=== PATIENT | male | born 1985 | race Caucasian/White ===

== ENCOUNTER 2022-09-07 13:42 | Emergency (ER) | payer MEDICARE, OTHER ==
[~2022-09-07] VITALS: Ht 175.3 cm; Wt 72.7 kg
[2022-09-07] MEDS ORDERED: NALOXONE HCL 1MG/ML 2ML SYRINGE IV ONE (14:00)
[2022-09-07 14:14] LABS: Basophils # (auto) 0.1 10 ^3/uL (0-0.2); Basophils % (auto) 0.8 % (0.0-2.0); Eosinophils # (auto) 0.3 10 ^3/uL (0-0.8); Eosinophils % (auto) 2.3 % (0.0-7.0); Hematocrit 38.1 % (41.0-53.0); Hemoglobin 13.1 g/dL (13.5-17.5); Lymphocytes # (auto) 1.7 10 ^3/uL (0.4-5.4); Mean Corpuscular Hemoglobin 30.4 pg (28.0-32.0); Mean Corpuscular Hgb Conc. 34.5 g/dL (32.0-36.0); Mean Corpuscular Volume 88.1 fL (80.0-100.0); Monocytes # (auto) 0.9 10 ^3/uL (0-1.3); Monocytes % (auto) 7.5 % (0.0-12.0); Neutrophils # (auto) 8.6 10 ^3/uL (1.6-8.6); Neutrophils % (auto) 74.4 % (37.0-80.0); Red Blood Cells 4.32 10^6/uL (4.5-5.90); Red Cell Distribution Width 13.2 % (11.8-14.3); White Blood Cell 11.6 10^3/uL (4.4-10.8)
[2022-09-07 14:43] LABS: Albumin 4.1 g/dL (3.4-5.0); Calcium 8.9 mg/dL (8.5-10.1); Magnesium 2.2 mg/dL (1.6-2.6); Potassium 3.8 mmol/L (3.5-5.1)
[2022-09-07 14:47] LABS: BUN/Creatinine Ratio 27.6 (10.0-20.0); Bilirubin, Total 0.8 mg/dL (0.2-1.0); Total Protein 7.1 g/dL (6.4-8.2)
[2022-09-07 18:47] LABS: Alcohol, Urine < 3.0 mg/dL (0-10); Barbiturate Scree,Urine NEGATIVE (NEGATIVE); Cannabinoid Screen, Urine NEGATIVE (NEGATIVE); Opiate Scree,Urine NEGATIVE (NEGATIVE); Phencyclidine Screen, Urine NEGATIVE (NEGATIVE)
[2022-09-07 18:55] LABS: Amphetamine Screen, Urine POSITIVE (NEGATIVE); Benzodiazephine Screen, Urine NEGATIVE (NEGATIVE); Cocaine Screen, Urine NEGATIVE (NEGATIVE)
[2022-09-07 20:15] VITALS: BP 113/76
== END 2022-09-07 20:19 | disposition home or self-care (01) ==
LOC: ER 13:42 → EDBD 13:42 → ER 20:15
DX: T40.411A Poisoning by fentanyl or fentanyl analogs, accidental (unintentional), initial encounter (principal); F15.10 Other stimulant abuse, uncomplicated; R42 Dizziness and giddiness; F17.210 Nicotine dependence, cigarettes, uncomplicated; Z79.899 Other long term (current) drug therapy; Z88.0 Allergy status to penicillin; Y92.9 Unspecified place or not applicable
CPT/HCPCS: 36415; 71045; 80053; 80307; 82962; 83605; 83735; 84484; 85025